=== PATIENT | male | born 2000 | race Caucasian/White ===

== ENCOUNTER 2025-02-21 17:12 | Emergency (ER) | payer OTHER ==
[~2025-02-21] VITALS: Ht 170.2 cm; Wt 114.7 kg
[2025-02-21 17:18] VITALS: BP 143/85; PULSE 81; O2SAT 100
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
[2025-02-21] MEDS ORDERED: METH-798 PO (18:47)
[2025-02-21] MEDS ORDERED: MELO-102 PO (18:47)
[2025-02-21 18:49] VITALS: TEMP 98.6
[2025-02-21 19:08] VITALS: RESP 16
[2025-02-21] MEDS: ketorolac trometh 30MG/ML vial 30 MG/ML VIAL IM STA (19:08)
== END 2025-02-21 19:11 | disposition home or self-care (01) ==
LOC: ER 17:13
DX: S39.012A Strain of muscle, fascia and tendon of lower back, initial encounter (principal); V89.2XXA Person injured in unspecified motor-vehicle accident, traffic, initial encounter; Y93.89 Activity, other specified; Y92.89 Other specified places as the place of occurrence of the external cause; Y99.8 Other external cause status
CPT/HCPCS: 96372; 99283; J1885